=== PATIENT | female | born 1955 | race Hispanic/Latino ===

== ENCOUNTER 2023-01-02 06:47 | Inpatient (IN) | payer OTHER, MEDICAID, SELFPAY ==
[2022-12-16 12:47] VITALS: BMI 36.4
[2023-01-02] VITALS (16 sets, daily range): BP systolic 118–140; BP diastolic 63–91; PULSE 63–87; RESP 10–20; TEMP 36.2–36.9; O2SAT 91–100; BMI 36.4; BMI 37.2
[2023-01-02] MEDS: LACTATED RINGERS 1,000 ML 42 ML IV (07:20)
[2023-01-02] MEDS: ACETAMINOPHEN 325 MG TABLET 975 MG PO (07:27)
[2023-01-02] MEDS: GABAPENTIN 600 MG TABLET PO (07:27)
--- NOTE | 2023-01-02 09:09 | PM.PREOP ---
Pre-operative Note COVID-19 Criteria for continued procedure: Expected advancement of disease process, Possibility delay results in more complex future surgery or treatment, Increased loss of function, Continuing or worsening of significant or severe pain, Deterioration of the patient's condition or overall health and Delay expected to result in less-positive ultimate med/surg outcome Interval Note History & Physical reviewed/Exam performed by Physician: Yes Changes to H&P: No
--- NOTE | 2023-01-02 09:53 | SUR.OPER ---
Prone on spine table, head in foam head support, padded chest and pelvic supports, gel pad at knees, lower legs supported by pillows; nipples, genitalia and toes free of pressure, arms secured on foam padded arm boards at <90 degrees abduction. Tape over blanket at thigh secured to table.
[2023-01-02] MEDS: CEFAZOLIN 2 GM/100 ML PREMIX 100 ML IV ×2 (10:08→19:00)
[2023-01-02] MEDS: BUPIVACAINE 0.25% (PF) 30 ML, EPINEPHrine 0.15 MG INJ (10:24)
[2023-01-02] MEDS: BUPIVACAINE LIPOSOME 266 MG/20 ML VIAL INJ (11:55)
--- NOTE | 2023-01-02 11:58 | PM.OP.1 ---
Operative Date/Time/Diagnoses Date of procedure: 01/02/23 Time of procedure: 10:15 Pre-op diagnosis: 1. L5-S1 spinal stenosis 2. Lumbar spondylosis with radiculopathy Post-op diagnosis: same Procedure & Clinicians Procedure: 1. L5-S1 Postero-lateral and posterior interbody fusion 2. L5-S1 interbody cage placement. 3. L5-S1 decompressive laminectomy with bilateral facetecomies 4. L5-S1 Posterior non-segmental instrumentation 5. [place] of bone marrow from iliac crest 6. Utilization of microsurgical technique and operating microscope Same procedure as scheduled: Yes Indications: Patient has been having chronic back pain and worsening lumbar radiculopathy. Patient failed multiple conservative management with worsening pain weakness and numbness in her lower extremity. Patient has been having difficulty performing activity of daily living. After discussing risks benefits of treatment options, patient elected proceed with surgery. Surgeon: Marychuy Worthy [place] Oven Operator: Isa Heck Click Yes if Unassisted: No Anesthesia Type: General Operative Notes Closure Type: primary Specimen(s): none sent Prosthetic devices, grafts, tissues, transplants, or devices: Globus revolve screws, Rise cage Estimated Blood Loss (mL): 5 Blood products transfused: none Procedure in detail: Patient was seen in the preoperative area. Risks and benefits of the surgery was discussed with the patient. Informed consent was obtained from the patient and placed in the chart. Surgical site was marked. Patient was taken to the operative room. General anesthesia was administered. Prophylactic antibiotic was given to the patient less than 30 min before the incision was made. Patient was placed into a prone position on the Marvin table. Patient's back was then prepped and draped in the sterile fashion. Time-out was performed at this time. Using AP and lateral C-arm imaging the interval between L5-S1 was identified and marked on patient's back. A 2 inch incision 2 in from midline was made on the right side first. The fascia was incised in line with skin incision. Globus MARS retractors was placed inside the incision and docked onto the L5 lamina. Using microsurgical technique and operating microscope, a L5 laminectomy and L5-S1 facetectomy was performed using a Kerrison rongeur. The laminectomy and facetectomy was performed in order to decompress patient's cauda equina as well as the nerve roots exiting at the L5-S1 level. The disc space at L4-5 was identified. And a total diskectomy was performed at L5-S1 level. The endplates were decorticated using a rasp and shaver. The total diskectomy and decortication was performed at L5-S1 level in order to to accomplish a L5-S1 fusion. The local bone from the laminectomy and facetectomy was saved for local bone grafting. After the total diskectomy and decortication was completed, Trifecta bone graft material was combined with local bone that was harvested earlier. At this time, a separate skin is incision was made over the iliac crest. A Jamshidi needle was inserted into the iliac crest through a separate skin incision. 5 cc of bone marrow aspiration was obtained through the separate skin incision using a Jamshidi needle from the iliac crest. The bone marrow aspiration was combined with local bone and the Trifecta bone grafting material. The bone grafting material was placed into the L5-S1 interbody space along with a expandable cage. The cage was expanded to its maximum height using the torque limiting screwdriver. At this time a mirror image incision was made on the left side. The fascia was incised in line with the skin incision. Globus MARS retractor was inserted and docked onto the L5-S1 posterolateral gutter. Using the power drill, posterior-lateral decortication was performed at L5-S1 level until bleeding cortical bone was identified. The remaining bone grafting material was placed into the L5-S1 posterior lateral gutter he order to accomplish posterolateral fusion at the L5-S1 level. Using the double C-arm technique, pedicle screws were placed into the L5 and S1 pedicles bilaterally. This was done by placing the Jamshidi needle into the pedicles, then placing the guidewires over the Jamshidi needle, and finally placing the cannulated screws over the guidewires bilaterally. After the pedicle screws were placed, 2 titanium rods was locked into the heads of the pedicle screws using locking caps and torque limiting screwdriver. After all the hardware was placed, and confirmed with AP and lateral C-arm imaging, the wound was then irrigated with sterile normal saline and packed with Ray-Jp gauze for 3 min to accomplish hemostasis. After the gauze was removed the deep fascia was closed with #1 Vicryl suture. The subcutaneous layer was closed with 2-0 Vicryl. The skin was closed with skin casey. Patient tolerated the procedure well. There were no complications. The Operation could not have been safely performed without compromising the technical result or length of the procedure, without the assistance of a skilled surgical product sales consultant. The surgical product sales consultant was medically necessary for proper positioning, retraction and manipulation of instruments, proper exposure, surgical preparation, and manipulation of tissue. Complications: none Post-operative Condition: stable Disposition: PACU Plan for aftercare: Admit to inpatient hospital
--- NOTE | 2023-01-02 12:00 | DI.RAD.S_ITS ---
PROCEDURE: XR LUMBAR SPINE 2-3V INDICATIONS: L5-S1 TLIF TECHNIQUE: 2 intraoperative fluoroscopic views of the lumbar spine were acquired. COMPARISON: None. FINDINGS: L5-S1 posterior spinal fixation and discectomy hardware in place. The hardware appears intact. IMPRESSION: Intraoperative guidance was provided. Dictated by: Kolton Johnson M.D. on 01/02/2023 at 13:46 Approved by: Kolton Johnson M.D. on 01/02/2023 at 13:47
[2023-01-02] MEDS: HYDROMORPHONE 1 MG INJ IV ×4 (12:12→12:34)
[2023-01-02] MEDS: OXYCODONE IR 5 MG TABLET PO (12:39)
[2023-01-02] MEDS: hydrOXYzine pamoate 25 MG CAPSULE 50 MG PO (12:51)
--- NOTE | 2023-01-02 12:58 | SUR.PHASEI ---
patient still complaining of pain 8/10 when asked, but is able to sleep with current pain level and is too drowsy and has too much respiratory depression to safely administer more narcotics at this time.
[2023-01-02] MEDS: LACTATED RINGERS 1,000 ML 125 ML IV ×2 (14:27→22:46)
--- NOTE | 2023-01-02 15:53 | PT-IP ANOTE ---
Addendum entered and electronically signed by Saulo Perkins PT 01/02/23 15:58: Post-op education packet was provided to the pt. Original Note: After introduction by PT, the pt states she is not ready to participate in PT evaluation due to fatigue. However, the pt is agreeable to answering questions regarding subjective information. The pt and the pt's were educated on post-op precautions, including education on log roll technique to get up from bed. The pt was left with at bedside, all needs met and call light within reach.
[2023-01-02] MEDS: OXYCODONE IR 10 MG TABLET PO ×3 (16:39→23:46)
[2023-01-02] MEDS: ONDANSETRON 4 MG ODT SL (16:39)
[2023-01-02] MEDS: HYDROMORPHONE 0.5 MG INJ IV ×2 (16:40→20:30)
--- NOTE | 2023-01-02 19:21 | PC.NURSE ---
Day shift: Patient up from OR @ 1600. Patient is AxOx4, denies pain, SOB. VSS, O2 sats at 97% on 1 L O2. Incision on back covered with gauze and medipore tape, dressing is clean, dry, and intact. 1 PA assist with gait belt and FWW to [facility], had one episode of nausea after getting OOB, medicated with Zofran as ordered w/ good effect. Bed alarm on, call light within reach.
[2023-01-02] MEDS: hydrOXYzine pamoate 25 MG CAPSULE PO (19:44)
[2023-01-02] MEDS: DOCUSATE 100 MG CAPSULE PO (21:12)
[2023-01-02] MEDS: SENNOSIDES 8.6 MG TABLET 17.2 MG PO (21:13)
[2023-01-02] MEDS: GABAPENTIN 300 MG CAPSULE PO (21:13)
[2023-01-02] MEDS: ATORVASTATIN 20 MG TABLET 10 MG PO (21:13)
[2023-01-02] MEDS: BACLOFEN 10 MG TABLET 20 MG PO (21:14)
[2023-01-02] MEDS: ACETAMINOPHEN 325 MG TABLET 650 MG PO (23:45)
[2023-01-03] MEDS: CEFAZOLIN 2 GM/100 ML PREMIX 100 ML IV (02:39)
[2023-01-03 03:00] VITALS: BP 138/64; PULSE 67; RESP 17; TEMP 36.7; O2SAT 99
[2023-01-03] MEDS: OXYCODONE IR 10 MG TABLET PO ×5 (03:04→22:28)
[2023-01-03] MEDS: hydrOXYzine pamoate 25 MG CAPSULE PO ×4 (03:05→22:28)
--- NOTE | 2023-01-03 06:28 | P.PN_ITS ---
Subjective Subjective Date Patient Seen: 01/03/23 Time Patient Seen: 06:29 Interval history: Pt sleeping, awakens easily to voice. Was OOB last night to use the bathroom, c/o severe pain. Has not yet worked with PT. No issues w/ voiding or eating. Feeling unsteady and would like to discharge home tomorrow. Exam Vital Signs (past 8 hours): - 01/02/23 23:00 01/03/23 03:00 Temperature 98 F 98.1 F Pulse Rate 70 67 Respiratory Rate 17 17 Blood Pressure 126/63 138/64 Pulse Oximetry 98 99 Oxygen Flow Rate 0 0 Oxygen Delivery Method Room Air Oxygen Flow Rate 0 Narrative Exam Narrative: 5/5 strength in hip flexors, quadriceps, hamstrings, DF, PF, EHL bilaterally. Sensation to light touch intact in BLE. Calves soft, compressible, nontender. Dressing placed intraoperatively CDI. [facility] Medical History (Updated 12/16/22 @ 13:08 by Johann Leslie RN) Allergic symptoms High cholesterol TIA (transient ischemic attack) Surgical History (Updated 01/03/23 @ 06:30 by Isa Heck PA-C) History of partial knee replacement Hx of surgical procedure Social History household members: spouse Smoking Status: Former smoker alcohol intake: current Assessment & Plan Post-op Assessment and plan (1) S/P lumbar fusion: Assessment and Plan narrative: Pt to work w/ PT today. Likely d/c home tomorrow if she progresses w/ PT and pain is controlled w/ oral meds. Postoperative Procedures: Procedures Operation Date: 01/02/23 09:15 Actual Procedure Side Surgeon p L5-S1 TLIF Marychuy Worthy MD Postoperative day: 1 Quality VTE Deep Vein Thrombosis/Pulmonary Embolism Present on Admission: No
[2023-01-03 07:00] VITALS: BP 105/59; PULSE 63; RESP 16; TEMP 37.1; O2SAT 97
[2023-01-03] MEDS: ACETAMINOPHEN 325 MG TABLET 650 MG PO ×3 (08:29→22:28)
[2023-01-03] MEDS: DOCUSATE 100 MG CAPSULE PO ×2 (08:30→20:29)
[2023-01-03] MEDS: LOSARTAN 25 MG TABLET PO (08:30)
[2023-01-03] MEDS: FLUoxetine 20 MG CAPSULE 40 MG PO (08:30)
[2023-01-03] MEDS: HYDROMORPHONE 0.5 MG INJ IV ×4 (10:28→23:20)
--- NOTE | 2023-01-03 11:47 | PT-IP ANOTE ---
Pt is refusing mobility at this time due to pain. Will attempt eval again later today.
--- NOTE | 2023-01-03 11:47 | OT.IPNOTE ---
Pt just getting pain meds and requesting to be seen for OT eval after lunch. To check on the pt after lunch.
[2023-01-03 12:00] VITALS: BP 101/58; PULSE 63; RESP 16; O2SAT 99
--- NOTE | 2023-01-03 14:42 | PT.IIE ---
Current Diagnoses Spondylolisthesis, lumbosacral region (01/02/23) Spinal stenosis, lumbar region with neurogenic claudication (01/02/23) Arthrodesis status (01/02/23) Surgery Performed Operation Date: 01/02/23 09:15 Actual Procedures p L5-S1 TLIF - Marychuy Worthy MD Surgical History (Last Updated 12/16/22 @ 13:20 by Johann Leslie, RN) History of partial knee replacement Hx of surgical procedure Medical History (Last Updated 12/16/22 @ 13:08 by Johann Leslie, JAI) Allergic symptoms High cholesterol TIA (transient ischemic attack) Physical Therapy Inpatient Evaluation/Re-Eval M1 PT/OT-IP Prior Functional Status Start: 01/02/23 15:48 Freq: NEEDED Status: Active Protocol: Document 01/03/23 14:42 DLM (Rec: 01/03/23 16:28 DLM [id number]) Medical Review Prior Functional Status Medical History Reviewed Yes Diet/Fluid Consistency Regular Communication Pt able to express needs without difficulty. Mobility and Gait Gait with cane due to right knee surgery 4 months ago, able to ambulate community distances but uses 4WW to manage her pain as needed Activities of Daily Living and IADL's Independent with basic ADL's. Spouse helps with social media manager as needed with patient' s recent knee surgeries. Her spouse helps with ADL's when she is in pain. Prior Functional Level (Other details) she likes to get out in her garden, grows aly Social History Household Members spouse Living Arrangements House Number of Floors (Floors) One Floor Number of Stairs To Enter/Railing? ramp Home Environment High Toilet,Walk in Shower, Ramp Home Equipment Front Wheel Walker,Four Wheel Walker,Straight Cane,Manual Wheelchair,Raised Toilet Seat Without Armrests,Grab Bars In Shower Additional Social History Comment Pt lives with who is available to assist her as needed. He is retired. She also has an electric recliner that lies fully back. M2 PT-IP Current Condition Start: 01/02/23 15:48 Freq: NEEDED Status: Active Protocol: Document 01/03/23 14:42 DLM (Rec: 01/03/23 16:28 DLM [id number]) Physical Therapy Current Condition Current Condition Evaluation Date 01/03/23 Treatment Diagnosis L5-S1 TLIF, impaired mobility/ gait Onset Date 01/02/23 M3 PT-IP Subjective Start: 01/02/23 15:48 Freq: NEEDED Status: Active Protocol: Document 01/03/23 14:42 DLM (Rec: 01/03/23 16:28 DL [id number]) Subjective Physical Therapy Visit Type Type Initial Evaluation Visit Start Time 13:50 Visit Stop Time 14:42 Total Visit Minutes 52 Notes visit done in conjunction with OT Number of DULSER Visits 0 Physical Therapy Visit Comments Patient Comments She was able to get up to the toilet with nursing but had a lot of pain when she got back to bed. Her does not think she is ready to go home today due to her pain level. Patient Goals Discharge home with Spouse to assist Therapy Pain Assessment Pain When Pain Assessed During Mobility Pain Present Pain Present Pain Reported Location Lower Back Intensity 6 Scale Used Numeric (0 - 10) Description Aching,Burning,Tender,With Movement Pain Behaviors Facial Grimacing,Guarding Pain Management Techniques Apply Cold,Re-positioning, Timing of Activity with Medications M4 PT-IP Mobility and Gait Start: 01/02/23 15:48 Freq: NEEDED Status: Active Protocol: Document 01/03/23 14:42 DLM (Rec: 01/03/23 16:28 DL [id number]) PT-Bed Mobility Assessment Rolling Type of Rolling Log Rolling,Roll to Left Level of Assist Standby Assistance Supine to Sit Supine to Sit Minimal Assistance Scooting Scooting to Edge of Bed Independent PT-Transfer Assessment Sit to and From Stand Sit to and from Stand Contact Guard Assistance,Use of Upper Extremities Equipment Transfer Assistive Device Gait Belt,Front Wheeled Walker Transfers Transfer Destination Chair,Toilet Transfer Technique Stand Step Pivot Transfer Ability Level of Assist Standby Assistance,Contact Guard Assistance,Use of Upper Extremities Comments Mobility Comments Educated pt in using spine precautions during mobility. Gait Assessment Gait Gait Assistance Required: Contact Guard Assist Distance (Feet) 150 Able to Maintain Weight Bearing Status Yes During Gait Assistive Devices Assistive Device Gait Belt,Front Wheeled Walker Gait Deviations General Gait Pattern Decreased Stride Length,Narrow Based Gait Factors Limiting Gait Function Factors Limiting Gait Function Decreased Activity Tolerance, Limited Range of Motion,Pain, Poor Balance Comments Gait Comments Pt needs reminders to turn slowly with the FWW to prevent twisting. She has a mild posterior lean intermittently in standing. She reports her head feels funny but no light- headedness nor did it get worse with activity. Pt up to toilet and ambulated in the goldsmith. Stair Climbing Assessment Comments Stair Climbing Comments ramp at home PT-Balance Assessment Sitting Balance and Reactions Static Sitting Balance Ability Good Dynamic Sitting Balance Ability Good Standing Balance and Reactions Static Standing Balance Ability Good Dynamic Standing Balance Ability Fair Device Used FWW M5 PT-IP Objective Assessments Start: 01/02/23 15:48 Freq: NEEDED Status: Active Protocol: Document 01/03/23 14:42 DLM (Rec: 01/03/23 16:28 [facility] [id number]) Orientation Orientation/Cognition Level of Alertness Alert Orientation Name,Age,Birthday,Month,Date, Year,Day of Week,Place, Situation Language Function Ability [place] as Second Language Safety Awareness Understands Safety Issues Memory Description No Deficits Noted Gross Range of Motion Upper Extremity ROM Assessment Within Functional Limits Lower Extremity ROM Assessment Within Functional Limits Strength Upper Extremity Strength Assessment Within Functional Limits Lower Extremity Strength Assessment Within Functional Limits Comments Strength Comments limited trunk ROM and strength post-op with pain and precautions Coordination Assessment Gross Coordination Gross Coordination WNL Sensation Assessment Sensation Gross Sensation WNL Muscle Tone Muscle Tone WNL Yes M6 PT-IP Treatment Start: 01/02/23 15:48 Freq: NEEDED Status: Active Protocol: Document 01/03/23 14:42 DLM (Rec: 01/03/23 16:28 [facility] [id number]) Physical Therapy Treatment Exercises Exercises Ankle Pumps Education Education Provided Precautions,Post-Op Packet, Safety Other Treatments Other Treatment Performed Her Spouse is present this visit and participated in education and training. M7 PT-IP Assessment and Plan Start: 01/02/23 15:48 Freq: NEEDED Status: Active Protocol: Document 01/03/23 14:42 DLM (Rec: 01/03/23 16:28 [facility] [id number]) PT Summary Assessment and Plan Potential Rehabilitation Potential Good Status of Condition at Evaluation Evolving Summary Impairments Pain,ROM,Strength,Balance,Bed Mobility,Transfers,Gait, Activity Tolerance Progress Towards Goals Slow Progress due to Pain Assessment Summary Celia is alert and resting in bed. She reports her pain is better this afternoon after getting medication. She tolerted getting up to the toilet, ambulating in the goldsmith and sitting up in the recliner this visit. She has more back pain with mobility than she does at rest. No light-headedness nor nausea with activity. Pt left sitting up in recliner with Spouse visiting at the end of this visit. Her Spouse is very supportive and will be able to assist her as needed at discharge. Anticipate she will be able to discharge home tomorrow. Pt and her Spouse do not feel she is ready today due to pain issues. Goals Bed Mobility Goal Independent Transfer Goal Independent,Front Wheeled Walker Gait Goal Independent,Front Wheel Walker Gait Distance 150 feet Days to Meet Goals 2 Frequency of Treatment Frequency Of Treatment Twice a Day Treatment Plan Physical Therapy Treatment Plan Bed Mobility Training,Transfer Training,Gait Training, Therapeutic Exercise,Balance Retraining,Post Op Education, Discharge Planning,Hot or Cold Pack,Neuromuscular Re-ed Precautions Lumbar Precautions Log Roll,No Twisting,Limit Bending,Lifting Restriction of 10 lbs,Gait Belt above Incisional Area Recommendations To Nursing Amount of Assist Needed 1 Person Assist Discharge Recommendations PT Discharge Recommendations Home with Assistance Other Discharge Recommendations home with Spouse to assist Transportation Needs at Discharge Private Vehicle
--- NOTE | 2023-01-03 14:43 | OT.IP.EVAL ---
Current Diagnoses Spondylolisthesis, lumbosacral region (01/02/23) Spinal stenosis, lumbar region with neurogenic claudication (01/02/23) Arthrodesis status (01/02/23) Surgery Performed Operation Date: 01/02/23 09:15 Actual Procedures p L5-S1 TLIF - Marychuy Worthy MD Past Medical History (Last Updated 12/16/22 @ 13:08 by Johann Leslie, RN) Allergic symptoms High cholesterol TIA (transient ischemic attack) Surgical History (Last Updated 12/16/22 @ 13:20 by Johann Leslie, RN) History of partial knee replacement Hx of surgical procedure Occupational Therapy Inpatient Evaluation/Re-Eval M1 PT/OT-IP Prior Functional Status Start: 01/02/23 15:48 Freq: NEEDED Status: Active Protocol: Document 01/03/23 14:42 DLM (Rec: 01/03/23 16:28 DLM [id number]) Medical Review Prior Functional Status Medical History Reviewed Yes Diet/Fluid Consistency Regular Communication Pt able to express needs without difficulty. Mobility and Gait Gait with cane due to right knee surgery 4 months ago, able to ambulate community distances but uses 4WW to manage her pain as needed Activities of Daily Living and IADL's Independent with basic ADL's. Spouse helps with damper worker as needed with patient's recent knee surgeries. Her spouse helps with ADL's when she is in pain. Prior Functional Level (Other details) she likes to get out in her garden, grows aly Social History Household Members spouse Living Arrangements House Number of Floors (Floors) One Floor Number of Stairs To Enter/Railing? ramp Home Environment High Toilet,Walk in Shower, Ramp Home Equipment Front Wheel Walker,Four Wheel Walker,Straight Cane,Manual Wheelchair,Raised Toilet Seat Without Armrests,Grab Bars In Shower Additional Social History Comment Pt lives with who is available to assist her as needed. He is retired. She also has an electric recliner that lies fully back. M2 OT-IP Current Condition Start: 01/03/23 16:31 Freq: Status: Active Protocol: Document 01/03/23 13:50 CCC (Rec: 01/03/23 16:50 CCC [id number]) Occupational Therapy Current Condition Current Condition Evaluation Date 01/03/23 Treatment Diagnosis S/P L5-S1 Diagnosis Onset Date 01/02/23 Post Operative Precautions Lumbar Precautions Log Roll,No Twisting,Limit Bending,Lifting Restriction of 10 lbs,Gait Belt above Incisional Area M3 OT- IP Subjective and Pain Start: 01/03/23 16:31 Freq: Status: Active Protocol: Document 01/03/23 13:50 [facility] (Rec: 01/03/23 16:50 [facility] [id number]) OT- Subjective Occupational Therapy Visit Type Type Initial Evaluation Visit Start Time 13:50 Visit Stop Time 14:43 Total Visit Minutes 53 Occupational Therapy Visit Comments Patient Comments Pt agreed to get up after getting pain medications and after lunch. Patient/Caregiver Goals To go home. OT Pain Assessment Pain When Pain Assessed At Rest Pain Present Pain Present Pain Reported Location Lower Back Intensity 7 Scale Used Numeric (0 - 10) M4 OT- IP ADL's Start: 01/03/23 16:31 Freq: Status: Active Protocol: Document 01/03/23 13:50 [facility] (Rec: 01/03/23 16:50 [facility] [id number]) OT BUY-Lkdz-Ejklhsw General Evaluation Self-Feeding Ability Independent OT ADL-Grooming General Evaluation Areas Needing Assistance Retrieving/Set-up of Grooming Items Comments OT Grooming Comments Up with FWW OT ADL-Oral Care Comments Oral Care Comments Not performed. OT ADL-Dressing General Eval Lower Body Dressing Ability Maximum Assistance Comments OT Dressing Comments Assist with socks. OT ADL-Toileting General Evaluation Toileting Ability Standby Assistance Comments OT Toileting Comments Pt able to wipe while standing . OT ADL-Bathing Comments OT Bathing Comments Not performed. M5 OT- IP IADL's Start: 01/03/23 16:31 Freq: Status: Active Protocol: Document 01/03/23 13:50 [facility] (Rec: 01/03/23 16:50 [facility] [id number]) OT-Instrumental Activities of Daily Living Deficits IADL Deficits Identified Deficits Home Safety Awareness Awareness of Need for Assistance at Home Good Awareness Ability to Problem Solve Emergency Able to Problem Solve Situations Meal Preparation Meal Preparation Caregiver Provides Assist Wellness Trainer Wellness Trainer Caregiver Provides Assist M6 OT- IP Functional Cognition Start: 01/03/23 16:31 Freq: Status: Active Protocol: Document 01/03/23 13:50 [facility] (Rec: 01/03/23 16:50 [facility] [id number]) Cognitive Factors Limiting Selfcare Function Cognitive Ability Level of Alertness Alert Patient Orientation Name,Place,Situation Attention Span Ability Capable of Focused Attention, Capable of Sustained Attention Ability to Follow Commands Able to Follow One Step Commands Cognitive Comments Cognitive Assessment Comments Maori is not her primary language but able to follow directions for ADl and mobility needs. OT- Vision and Hearing OT- Hearing Assessment OT- Hearing Assessment WFL OT- Vision Assessment Visual Acuity Glasses All The Time M7 OT- IP Mobility and Balance Start: 01/03/23 16:31 Freq: Status: Active Protocol: Document 01/03/23 13:50 [facility] (Rec: 01/03/23 16:50 [facility] [id number]) OT- Bed Mobility Assessment Supine to Sit Supine to Sit Assist Minimal Assistance OT-Transfer Assessment Sit to and From Stand Sit to and from Stand Contact Guard Assistance Transfers Transfer Ability Contact Guard Assistance Technique Transfer Destination Bed,Chair,Toilet Transfer Technique Stand Step Pivot Devices Transfer Assistive Devices Gait Belt,Front Wheeled Walker Comments Mobility Comments Pt ADELINA to get out of bed with log rolling, CGA with FWW to get into the bathroom, out in the hallway and to the recliner. Able to educate pt on car transfer with incorporation of her back precautions. OT- Balance Assessment Sitting Balance and Reactions Static Sitting Balance Ability Normal Dynamic Sitting Balance Ability Good Standing Balance and Reactions Static Standing Balance Ability Good Dynamic Standing Balance Ability Good M9 OT- IP Assessment and Plan Start: 01/03/23 16:31 Freq: Status: Active Protocol: Document 01/03/23 13:50 [facility] (Rec: 01/03/23 16:50 [facility] [id number]) OT Summary Assessment and Plan Potential Rehabilitation Potential Excellent Analytic Complexity at Evaluation Low Summary OT Impairments Pain,Functional Mobility, Dressing,Bathing,Toilet Transfers,Shower Transfers Progress Towards Goals Progressing Toward Goals Assessment Summary Pt low complexity and main barriers is pain , otherwise doing well. Pt's states will continue to assist pt for her ADL needs and IADl needs as he has done so before due to having pain with her back. Pt to go home with assist when medically stable. Goals Grooming Goal Independent Dressing Goal Minimal Assistance Toileting Goal Independent Toilet Transfer Goal Independent,Standby Assistance Shower Transfer Goal Standby Assistance Patient/Caregiver Education Goal Demonstrate Post-Op Precautions,Caregiver Independent Assisting Patient Days to Meet Goals 3 Frequency of Treatment Frequency Of Treatment Once a Day Treatment Plan OT Treatment Plan ADL Training,Functional Mobility,Patient/Family Education,Discharge Planning Discharge Recommendations OT Discharge Recommendations Home with Assistance Home Equipment Needs shower chair and hand held shower spray
[2023-01-03 16:00] VITALS: BP 105/51; PULSE 63; RESP 16; O2SAT 97
[2023-01-03 19:35] VITALS: BP 103/64; PULSE 60; RESP 16; TEMP 36.7; O2SAT 98
[2023-01-03] MEDS: SENNOSIDES 8.6 MG TABLET 17.2 MG PO (20:28)
[2023-01-03] MEDS: GABAPENTIN 300 MG CAPSULE PO (20:29)
[2023-01-03] MEDS: BACLOFEN 10 MG TABLET 20 MG PO (20:29)
[2023-01-03] MEDS: ATORVASTATIN 20 MG TABLET 10 MG PO (20:29)
[2023-01-04] MEDS: HYDROMORPHONE 0.5 MG INJ IV ×2 (01:36→06:08)
[2023-01-04 04:05] VITALS: BP 102/55; PULSE 68; RESP 16; TEMP 37.4; O2SAT 94
[2023-01-04 07:43] VITALS: BP 131/62; PULSE 79; RESP 20; TEMP 37.2; O2SAT 97
[2023-01-04] MEDS: hydrOXYzine pamoate 25 MG CAPSULE PO ×3 (07:52→19:18)
[2023-01-04] MEDS: ACETAMINOPHEN 325 MG TABLET 650 MG PO ×2 (07:52→14:41)
[2023-01-04] MEDS: OXYCODONE IR 10 MG TABLET PO (07:52)
[2023-01-04] MEDS: DOCUSATE 100 MG CAPSULE PO ×2 (07:52→20:09)
[2023-01-04] MEDS: LOSARTAN 25 MG TABLET PO (07:52)
[2023-01-04] MEDS: FLUoxetine 20 MG CAPSULE 40 MG PO (07:52)
--- NOTE | 2023-01-04 08:42 | PT.IPTN ---
Current Diagnoses Spondylolisthesis, lumbosacral region (01/02/23) Spinal stenosis, lumbar region with neurogenic claudication (01/02/23) Arthrodesis status (01/02/23) Surgery Performed Operation Date: 01/02/23 09:15 Actual Procedures p L5-S1 TLIF - Marychuy Worthy MD Physical Therapy Treatment Note M2 PT-IP Current Condition Start: 01/02/23 15:48 Freq: NEEDED Status: Active Protocol: Document 01/03/23 14:42 DLM (Rec: 01/03/23 16:28 DLM [id number]) Physical Therapy Current Condition Current Condition Evaluation Date 01/03/23 Treatment Diagnosis L5-S1 TLIF, impaired mobility/ gait Onset Date 01/02/23 M3 PT-IP Subjective Start: 01/02/23 15:48 Freq: NEEDED Status: Active Protocol: Document 01/04/23 09:25 TS (Rec: 01/04/23 09:49 TS [id number]) Subjective Physical Therapy Visit Type Type Treatment Note Visit Start Time 08:42 Visit Stop Time 09:20 Total Visit Minutes 38 Notes Spouse present Number of MEN'S GARMENT FITTER Visits 1 Physical Therapy Visit Comments Patient Comments Pt found resting in bed on L side, spouse present, PA discussing care with pt and the importance of mobility. pt reports being drowzy, pt agreeable to PT. Patient Goals Discharge home with Spouse to assist Therapy Pain Assessment Pain When Pain Assessed At Rest Pain Present Pain Present Pain Reported M4 PT-IP Mobility and Gait Start: 01/02/23 15:48 Freq: NEEDED Status: Active Protocol: Document 01/04/23 09:25 TS (Rec: 01/04/23 09:49 TS [id number]) PT-Bed Mobility Assessment Supine to Sit Supine to Sit Minimal Assistance Scooting Scooting to Edge of Bed Independent PT-Transfer Assessment Sit to and From Stand Sit to and from Stand Contact Guard Assistance,Use of Upper Extremities Equipment Transfer Assistive Device Gait Belt,Front Wheeled Walker Comments Mobility Comments Pt recalled 0/3 precautions prior to mobility. Supine to sit Enoc for uprighting trunk, provided cues for handplacement and LEs over EOB . Pt sat EOB with no UE support, pt recalled 2/3 spinal precautions(no lifting) . Sit to stand CGA with use of FWW, pt is slow to stand and garding for pain, has no retroleaning. She ambulated ~ 80' CGA from spouse, when ambulating bakc to room pt became dizzy, felt nauseous and began sweating. Recliner brought out in goldsmith for pt to rest, pt was brought back to room in recliner. BP taken in sitting 102/58. Pt was left in chair asleep, spouse in room, RN notified of dizziness, nausea and BP. Gait Assessment Gait Gait Assistance Required: Contact Guard Assist Distance (Feet) 80 Able to Maintain Weight Bearing Status Yes During Gait Assistive Devices Assistive Device Gait Belt,Front Wheeled Walker Gait Deviations General Gait Pattern Decreased Stride Length,Narrow Based Gait,Step-to Gait Factors Limiting Gait Function Factors Limiting Gait Function Decreased Activity Tolerance, Decreased Strength,Limited Range of Motion,Pain,Poor Balance Comments Gait Comments Pt has a slow step to gait with NBOS at times. See mobility comments. Stair Climbing Assessment Comments Stair Climbing Comments ramp at home PT-Balance Assessment Sitting Balance and Reactions Static Sitting Balance Ability Good Dynamic Sitting Balance Ability Good Standing Balance and Reactions Static Standing Balance Ability Good Dynamic Standing Balance Ability Fair Device Used FWW M5 PT-IP Objective Assessments Start: 01/02/23 15:48 Freq: NEEDED Status: Active Protocol: Document 01/03/23 14:42 DLM (Rec: 01/03/23 16:28 DLM [id number]) Orientation Orientation/Cognition Level of Alertness Alert Orientation Name,Age,Birthday,Month,Date, Year,Day of Week,Place, Situation Language Function Ability Icelandic as Second Language Safety Awareness Understands Safety Issues Memory Description No Deficits Noted Gross Range of Motion Upper Extremity ROM Assessment Within Functional Limits Lower Extremity ROM Assessment Within Functional Limits Strength Upper Extremity Strength Assessment Within Functional Limits Lower Extremity Strength Assessment Within Functional Limits Comments Strength Comments limited trunk ROM and strength post-op with pain and precautions Coordination Assessment Gross Coordination Gross Coordination WNL Sensation Assessment Sensation Gross Sensation WNL Muscle Tone Muscle Tone WNL Yes M6 PT-IP Treatment Start: 01/02/23 15:48 Freq: NEEDED Status: Active Protocol: Document 01/04/23 09:25 TS (Rec: 01/04/23 09:49 TS [id number]) Physical Therapy Treatment Education Education Provided Precautions,Post-Op Packet, Safety Other Treatments Other Treatment Performed Her Spouse is present this visit and participated in education and training. M7 PT-IP Assessment and Plan Start: 01/02/23 15:48 Freq: NEEDED Status: Active Protocol: Document 01/04/23 09:25 TS (Rec: 01/04/23 09:49 TS [id number]) PT Summary Assessment and Plan Potential Rehabilitation Potential Good Summary Progress Towards Goals Slow Progress due to Pain Assessment Summary Pt continues to have difficult recalling spinal precautions, initially recalled 0/3, later in session recalled 2/3(no lifting). She is Enoc for suine to sit and scoots to EOB Ind. Sitting EOB pt reported not having much pain since she was recently medicated. She performed sit to stand x1 CGA w/FWW, pt had good posture in standing with no retroleaning. She ambulated ~80' CGA w/FWW, she became dizzy, nauseous, drowsy and began sweating, recliner was provided for her to rest, RN was notified. Pt's spouse has been present for all therapy sessions and feels comfortable taking care of pt at home but does worry about managing her pain at home. Due to pt's pain and dizziness with gait, PT would recommend home with 24/7 assist at this time. Goals Bed Mobility Goal Independent Transfer Goal Independent,Front Wheeled Walker Gait Goal Independent,Front Wheel Walker Gait Distance 150 feet Days to Meet Goals 2 Frequency of Treatment Frequency Of Treatment Twice a Day Treatment Plan Physical Therapy Treatment Plan Bed Mobility Training,Transfer Training,Gait Training, Therapeutic Exercise,Balance Retraining,Post Op Education, Discharge Planning,Hot or Cold Pack,Neuromuscular Re-ed Precautions Lumbar Precautions Log Roll,No Twisting,Limit Bending,Lifting Restriction of 10 lbs,Gait Belt above Incisional Area Recommendations To Nursing Amount of Assist Needed 1 Person Assist Discharge Recommendations PT Discharge Recommendations Home with 24/7 Assist Available Other Discharge Recommendations home with Spouse to assist Transportation Needs at Discharge Private Vehicle
--- NOTE | 2023-01-04 08:49 | PM.PNPO.1 ---
Subjective Subjective Date Patient Seen: 01/04/23 Time Patient Seen: 08:49 Interval history: Patient states she was having severe pain all night. Distal received some IV Dilaudid which has helped decrease her pain. Patient denies fever chills. No nausea or vomiting. Exam Vital Signs (past 8 hours): - 01/04/23 04:05 01/04/23 07:43 Temperature 99.3 F 98.9 F Pulse Rate 68 79 Respiratory Rate 16 20 Blood Pressure 102/55 L 131/62 Pulse Oximetry 94 97 Oxygen Flow Rate 0 0 Oxygen Delivery Method Room Air Oxygen Flow Rate 0 Narrative Exam Narrative: 67-year-old female resting comfortably in bed in no apparent distress. Patient is lying on her side. Dressing is clean, dry and intact. Motor functions intact bilateral lower extremities. Sensation grossly intact to light touch bilateral lower extremities. Const General: comfortable Nutritional Appearance: obese (BMI 37.2) Orientation: alert Resp Effort & Inspection: normal respiratory effort and able to speak in complete sentences PFSH Medical History Allergic symptoms High cholesterol TIA (transient ischemic attack) Surgical History History of partial knee replacement Hx of surgical procedure Social History household members: spouse Smoking Status: Former smoker alcohol intake: current Assessment & Plan Post-op Postoperative Procedures: Procedures Operation Date: 01/02/23 09:15 Actual Procedure Side Surgeon p L5-S1 TLIF Marychuy Worthy MD Postoperative day: 2 Postoperative status: marginal pain control Postoperative plan: routine post-op care Postoperative plan narrative: Continue work on better pain control. We will discontinue IV Dilaudid and add Dilaudid p.o. for breakthrough pain Mobilize with physical therapy Discharge home versus [facility] facility tomorrow Quality VTE Deep Vein Thrombosis/Pulmonary Embolism Present on Admission: No
[2023-01-04] MEDS: HYDROMORPHONE 2 MG TABLET PO ×4 (09:37→22:26)
--- NOTE | 2023-01-04 11:56 | CM.DANOTE ---
Initial DCP Assessment Note Pt is a 67 yo female, resident of [place] , now POD#2 p L5-S1 TLIF by Dr Worthy PCP: Sulaiman Chandler Payer: Ethan GEORGE/SOFIE Reviewed chart, pt discussed in multidisciplinary rounds this morning. Therapy has cleared pt for return home w/family to assist and pt has planned for home, DC order from Ortho expected tomorrow as long as patient's pain is better controlled. Patient has been complaining of severe pain over the last 24 hrs. No barriers identified at this time to patient's safe discharge home w/family to assist; close outpatient f/u recommended. CM team will plan to follow closely in case any DC needs or concerns arise MEENU Pham Discharge Planning/Care Management Discharge Assessment Start: 01/04/23 11:51 Freq: Status: Active Protocol: Document 01/04/23 11:51 GREGORY (Rec: 01/04/23 11:56 [id number]) Discharge Planning Assessment Assigned Lie Detector Operator MEENU Lugo DPOA/Assigned Designee Name Julien So, spouse Contact Information [phone] Advance Directives? No History Provided By Patient,Medical Record Prior Living Arrangements House Household Members spouse Type of transportation used prior to Drives own vehicle admit Independent with ADL's Yes: 4WW r/t pain and poor activity tolerance Is patient alert and oriented? Yes Barriers to Discharge No Comment PT=Home w/spouse Discharge Plan Home Transportation Arrangement Family Referrals Initiated None needed
[2023-01-04] MEDS: polyethylene glycoL 3350 17 GM POWD.PACK PO (14:40)
[2023-01-04] MEDS: BENZOCAINE/MENTHOL 1 LOZ PKT 1 EACH PO (14:41)
--- NOTE | 2023-01-04 14:50 | PT.IPTN ---
Current Diagnoses Spondylolisthesis, lumbosacral region (01/02/23) Spinal stenosis, lumbar region with neurogenic claudication (01/02/23) Arthrodesis status (01/02/23) Surgery Performed Operation Date: 01/02/23 09:15 Actual Procedures p L5-S1 TLIF - Marychuy Worthy MD Physical Therapy Treatment Note M2 PT-IP Current Condition Start: 01/02/23 15:48 Freq: NEEDED Status: Active Protocol: Document 01/03/23 14:42 DLM (Rec: 01/03/23 16:28 DLM [id number]) Physical Therapy Current Condition Current Condition Evaluation Date 01/03/23 Treatment Diagnosis L5-S1 TLIF, impaired mobility/ gait Onset Date 01/02/23 M3 PT-IP Subjective Start: 01/02/23 15:48 Freq: NEEDED Status: Active Protocol: Document 01/04/23 15:11 TS (Rec: 01/04/23 15:23 TS [id number]) Subjective Physical Therapy Visit Type Type Treatment Note Visit Start Time 14:50 Visit Stop Time 15:10 Total Visit Minutes 20 Number of IRON PILER Visits 2 Physical Therapy Visit Comments Patient Comments Pt found standing up with spouse in room, reports needing to use toilet, pt agreeable to PT. Patient Goals Discharge home with Spouse to assist Therapy Pain Assessment Pain When Pain Assessed At Rest Pain Present Pain Present Pain Reported M4 PT-IP Mobility and Gait Start: 01/02/23 15:48 Freq: NEEDED Status: Active Protocol: Document 01/04/23 15:11 TS (Rec: 01/04/23 15:23 TS [id number]) PT-Transfer Assessment Sit to and From Stand Sit to and from Stand Standby Assistance,Contact Guard Assistance,Use of Upper Extremities Equipment Transfer Assistive Device Gait Belt,Front Wheeled Walker Comments Mobility Comments Pt recalled 3/3 spinal precautions prior to mobility this session. Sit to stand CGA from spouse with FWW, pt demonstrates good posture in standing, c/o increasing back pain. She ambulated SBA to toilet with slow step to gait, denied any dizziness or lighteheadedness. Pt stood from toilet SBA with FWW and use of grab bar. She ambulated back to bed ~12' SBA, stand to sit on EOB SBA with cues for handrail assist. Sit to supine she required max cues for sequencing and logroll technique. Pt was left in bed with call light nearby, spouse in room, all needs met. Gait Assessment Gait Gait Assistance Required: Contact Guard Assist Distance (Feet) 25 Able to Maintain Weight Bearing Status Yes During Gait Assistive Devices Assistive Device Gait Belt,Front Wheeled Walker Gait Deviations General Gait Pattern Decreased Stride Length,Narrow Based Gait,Step-to Gait Factors Limiting Gait Function Factors Limiting Gait Function Decreased Activity Tolerance, Decreased Strength,Limited Range of Motion,Pain,Poor Balance Comments Gait Comments Pt has a slow step to gait with NBOS at times. See mobility comments. Stair Climbing Assessment Comments Stair Climbing Comments ramp at home PT-Balance Assessment Sitting Balance and Reactions Static Sitting Balance Ability Good Dynamic Sitting Balance Ability Good Standing Balance and Reactions Static Standing Balance Ability Good Dynamic Standing Balance Ability Fair Device Used FWW M5 PT-IP Objective Assessments Start: 01/02/23 15:48 Freq: NEEDED Status: Active Protocol: Document 01/03/23 14:42 DL (Rec: 01/03/23 16:28 DL [id number]) Orientation Orientation/Cognition Level of Alertness Alert Orientation Name,Age,Birthday,Month,Date, Year,Day of Week,Place, Situation Language Function Ability Dominican as Second Language Safety Awareness Understands Safety Issues Memory Description No Deficits Noted Gross Range of Motion Upper Extremity ROM Assessment Within Functional Limits Lower Extremity ROM Assessment Within Functional Limits Strength Upper Extremity Strength Assessment Within Functional Limits Lower Extremity Strength Assessment Within Functional Limits Comments Strength Comments limited trunk ROM and strength post-op with pain and precautions Coordination Assessment Gross Coordination Gross Coordination WNL Sensation Assessment Sensation Gross Sensation WNL Muscle Tone Muscle Tone WNL Yes M6 PT-IP Treatment Start: 01/02/23 15:48 Freq: NEEDED Status: Active Protocol: Document 01/04/23 15:11 TS (Rec: 01/04/23 15:23 [id number]) Physical Therapy Treatment Education Education Provided Precautions,Post-Op Packet, Safety Other Treatments Other Treatment Performed Her Spouse is present this visit and participated in education and training. M7 PT-IP Assessment and Plan Start: 01/02/23 15:48 Freq: NEEDED Status: Active Protocol: Document 01/04/23 15:11 TS (Rec: 01/04/23 15:23 TS [id number]) PT Summary Assessment and Plan Potential Rehabilitation Potential Good Summary Progress Towards Goals Progressing Toward Goals Assessment Summary Pt is making progress with her mobility this session. She ambulated ~25' in room, had no dizziness, nausea or thermal changes this session. She recalled 3/3 spinal precautions without cues from spouse this session. She demonstrates some carryover of sit to supine w/logroll technique but does require some initial cueing. PT continues to recommend pt return home with assist from spouse when medically stable. Spouse has been through caregiver training and pt is progressing well with her mobility. Goals Bed Mobility Goal Independent Transfer Goal Independent,Front Wheeled Walker Gait Goal Independent,Front Wheel Walker Gait Distance 150 feet Days to Meet Goals 2 Frequency of Treatment Frequency Of Treatment Twice a Day Treatment Plan Physical Therapy Treatment Plan Bed Mobility Training,Transfer Training,Gait Training, Therapeutic Exercise,Balance Retraining,Post Op Education, Discharge Planning,Hot or Cold Pack,Neuromuscular Re-ed Other Recommendations and Next Treatment progress gait, assess Focus carryover of bed mobility/ logroll and spinal precautions . Precautions Lumbar Precautions Log Roll,No Twisting,Limit Bending,Lifting Restriction of 10 lbs,Gait Belt above Incisional Area Recommendations To Nursing Amount of Assist Needed 1 Person Assist Discharge Recommendations PT Discharge Recommendations Home with Assistance Other Discharge Recommendations home with Spouse to assist Transportation Needs at Discharge Private Vehicle
--- NOTE | 2023-01-04 19:24 | PC.NURSE ---
Pain: Has had high level pain for th last 2 days. PA notified yesterday-will watch. And PA was notified again today of amount of oxycodone and IV dilaudid pt had taken. New order for oral dilaudid received. Pt received a dose around 0930 this am. Had already received IV dilaudid and oral oxy. When reassessed pt reported she felt better and she also wondered if the oxy was making her feel sick to her stomach. When she requested pain med again she did not want to take any further oxy requesting oral dilaudid. Dr. Worthy called and made aware and she can have it every 3 hours. She doesn't want to take something she doesn't feel is working and might be making her have nausea. Since then pt reports she is more comfortable. She has needed no IV dilaudid this shift and only 2 oral doses of dilaudid. Just took a dose now. She and spouse both thinks she will be fine at home on oral dilaudid and she should be able to leave in the am. Will cont to provide pain relief.
[2023-01-04 19:25] VITALS: BP 113/59; PULSE 66; RESP 16; TEMP 37.1; O2SAT 98
[2023-01-04] MEDS: ATORVASTATIN 20 MG TABLET 10 MG PO (20:09)
[2023-01-04] MEDS: SENNOSIDES 8.6 MG TABLET 17.2 MG PO (20:09)
[2023-01-04] MEDS: GABAPENTIN 300 MG CAPSULE PO (20:09)
[2023-01-04] MEDS: BACLOFEN 10 MG TABLET 20 MG PO (20:10)
[2023-01-05] MEDS: HYDROMORPHONE 2 MG TABLET PO (02:08)
[2023-01-05] MEDS: ONDANSETRON 4 MG/2 ML INJ IV (04:42)
[2023-01-05] MEDS: DOCUSATE 100 MG CAPSULE PO (08:11)
[2023-01-05] MEDS: FLUoxetine 20 MG CAPSULE 40 MG PO (08:11)
[2023-01-05 08:16] VITALS: BP 90/46
[2023-01-05 08:22] VITALS: BP 102/49
--- NOTE | 2023-01-05 08:57 | PM.DS.1 ---
History of Present Illness History of Present Illness Date Patient Seen: 01/05/23 Time Patient Seen: 08:57 Chief complaint: Lumbar TLIF Narrative: Operative Date/Time/Diagnoses Date of procedure: 01/02/23 Time of procedure: 10:15 Pre-op diagnosis: 1. L5-S1 spinal stenosis 2. Lumbar spondylosis with radiculopathy Post-op diagnosis: same Procedure & Clinicians Procedure: 1. L5-S1 Postero-lateral and posterior interbody fusion 2. L5-S1 interbody cage placement. 3. L5-S1 decompressive laminectomy with bilateral facetecomies 4. L5-S1 Posterior non-segmental instrumentation 5. [place] of bone marrow from iliac crest 6. Utilization of microsurgical technique and operating microscope Same procedure as scheduled: Yes Indications: Patient has been having chronic back pain and worsening lumbar radiculopathy. Patient failed multiple conservative management with worsening pain weakness and numbness in her lower extremity.? Patient has been having difficulty performing activity of daily living.? After discussing risks benefits of treatment options, patient elected proceed with surgery. Surgeon: Marychuy Worthy Felt Washing Machine Tender: Isa Heck Click Yes if Unassisted: No Anesthesia Type: General Operative Notes Closure Type: primary Specimen(s): none sent Prosthetic devices, grafts, tissues, transplants, or devices: Globus revolve screws, Rise cage Estimated Blood Loss (mL): 5 Blood products transfused: none Discharge Providers Provider Date of admission: 01/02/23 06:47 Discharge Date: 01/05/23 Primary care physician: Sulaiman Chandler DO Consults: 01/02/23 13:46 Consult to Occupational Therapy Evaluate & Treat Comment: Physician Instructions: Evaluate and treat Consult to Physical Therapy Evaluate & Treat Comment: Physician Instructions: Evaluate and Treat Discharge provider: Isa Heck PA-C Summary Hospital Course Discharge Diagnosis: L5-S1 spinal stenosis, Lumbar spondylosis with radiculopathy; s/p lumbar fusion Hospital Course: Ms Anjana Pinedo's hospital course was remarkable for poor pain control and slow progress w/ PT. On POD#2, she was started on oral dilaudid. While this helped with the pain, she told me on the morning of POD# 3 that she believed it was causing episodes of hypotension. She was otherwise feeling well and wanted to go home. We agreed that she would discharge w/ oxycodone only. She has hydroxyzine from a total knee replacement that she can also take for muscle spasm and nausea. She is eating and voiding without difficulty. Exam Vital Signs (past 8 hours): - 01/05/23 08:16 01/05/23 08:16 01/05/23 08:22 Blood Pressure 90/46 L 90/46 L 102/49 L Oxygen Delivery Method Room Air Oxygen Flow Rate 0 Narrative Exam Narrative: 5/5 strength in hip flexors, quadriceps, hamstrings, DF, PF, EHL bilaterally. Sensation to light touch intact in BLE. Calves soft, compressible, nontender. Dressing placed intraoperatively w/ scant bloody drainage on left. [facility] Medical History Allergic symptoms High cholesterol TIA (transient ischemic attack) Surgical History History of partial knee replacement Hx of surgical procedure Social History household members: spouse Smoking Status: Former smoker alcohol intake: current Discharge Assessment & Plan Assessment and Plan Assessment: L5-S1 spinal stenosis, Lumbar spondylosis with radiculopathy; s/p lumbar fusion Plan of Treatment: Discharge home, meds as above, f/u in office in 2 weeks as scheduled. Discharge Plan Discharge Plan Patient Disposition: Home Discharge orders & Medications Prescriptions: New oxycodone 5 mg tablet 5 mg PO Q4-6H PRN (Reason: pain (scale score 4-6)) Qty: 60 0RF acetaminophen 325 mg Tablet 650 mg PO Q6H PRN (Reason: Fever/Mild Pain (1-3)) Qty: 240 0RF docusate sodium 100 mg Capsule 100 mg PO BID PRN (Reason: constipation) Qty: 60 1RF Continued fluoxetine 40 mg Capsule 40 mg PO DAILY baclofen 20 mg Tablet 20 mg PO BEDTIME losartan 25 mg Tablet 25 mg PO DAILY gabapentin 300 mg Capsule 300 mg PO BEDTIME rosuvastatin 5 mg Tablet 5 mg PO DAILY Follow up/Referrals: Sulaiman Chandler DO [Primary Care Provider] - Marychuy Worthy MD [Physician] - As previously scheduled (Follow up with Darin Connolly PA-C, on 01/15/2023 @ 1:30 pm at [facility] office in [place].) Diet/Activity/Treatments Diet: Diet as Tolerated Activity: No deep bending or twisting at the waist. No lifting more than 10 pounds. Skin/Wound/Dressing Care Report to your healthcare provider any signs of infection, such as:: chills, fever, night sweats, unusual drainage and unusual redness Dressing: May shower. Keep dressing as dry as possible. If dressing becomes wet or dirty, may remove and replace with clean, dry gauze. No bathing or otherwise soaking incisions. Do not apply any creams, lotions, or ointments to incisions. Visit Report/Discharge Packet Instructions: DI for Prescription Opioid Use, DI for Transforaminal Lumbar Interbody Fusion Stand Alone Forms: Patient Portal/API, Stroke Signs & Symptoms, Surgery Discharge Discharge Data Primary Care Provider: Sulaiman Chandler VTE Deep Vein Thrombosis/Pulmonary Embolism Present on Admission: No
--- NOTE | 2023-01-05 10:10 | PT.IPTN ---
Current Diagnoses Spondylolisthesis, lumbosacral region (01/02/23) Spinal stenosis, lumbar region with neurogenic claudication (01/02/23) Arthrodesis status (01/02/23) Surgery Performed Operation Date: 01/02/23 09:15 Actual Procedures p L5-S1 TLIF - Marychuy Worthy MD Physical Therapy Treatment Note M2 PT-IP Current Condition Start: 01/02/23 15:48 Freq: NEEDED Status: Active Protocol: Document 01/03/23 14:42 DLM (Rec: 01/03/23 16:28 DLM [id number]) Physical Therapy Current Condition Current Condition Evaluation Date 01/03/23 Treatment Diagnosis L5-S1 TLIF, impaired mobility/ gait Onset Date 01/02/23 M3 PT-IP Subjective Start: 01/02/23 15:48 Freq: NEEDED Status: Active Protocol: Document 01/05/23 09:45 KS (Rec: 01/05/23 11:11 KS [id number]) Subjective Physical Therapy Visit Type Type Treatment Note Visit Start Time 09:45 Visit Stop Time 10:10 Total Visit Minutes 25 Notes Spouse present, able to assist pt Number of BRANCH OPERATIONS MANAGER Visits 3 Physical Therapy Visit Comments Patient Comments Pt feels ready to go home w/ spouse. Patient Goals Discharge home with Spouse to assist Therapy Pain Assessment Pain When Pain Assessed During Mobility Pain Present Pain Present Pain Reported Location Lower Back Intensity 7 Scale Used Numeric (0 - 10) Pain Behaviors Guarding Pain Management Techniques Re-positioning,Timing of Activity with Medications M4 PT-IP Mobility and Gait Start: 01/02/23 15:48 Freq: NEEDED Status: Active Protocol: Document 01/05/23 09:45 KS (Rec: 01/05/23 11:11 KS [id number]) PT-Bed Mobility Assessment Rolling Type of Rolling Log Rolling,Roll to Right Supine to Sit Supine to Sit Minimal Assistance,1 Person Assistance Sit to Supine Sit to Supine Minimal Assistance,1 Person Assistance Scooting Scooting to Edge of Bed Standby Assistance PT-Transfer Assessment Sit to and From Stand Sit to and from Stand Standby Assistance,1 Person Assistance,Use of Upper Extremities Equipment Transfer Assistive Device Gait Belt,Front Wheeled Walker Transfers Transfer Destination Bed Transfer Technique ambulated Transfer Ability Level of Assist Minimal Assistance,1 Person Assistance,Use of Upper Extremities Comments Mobility Comments Pt in bed upon arrival, spouse in room. Pt able to recll 3/3 precautions. Spouse provided min A for logroll and sidelying<>sit. Pt scooted EOB SBA. Sit<>stand w/ FWW SBA. Pt ambulated ~[address] w/ FWW SBA to CGA and returned to bed w/ Min A. Pt and spouse feel capable of returning home safely. Left in bed w/ all needs in reach. Gait Assessment Gait Gait Assistance Required: Standby Assistance,Contact Guard Assist,1 Person Assist Distance (Feet) 80 Able to Maintain Weight Bearing Status Yes During Gait Assistive Devices Assistive Device Gait Belt,Front Wheeled Walker Gait Deviations General Gait Pattern Decreased Stride Length,Narrow Based Gait,Step-to Gait Factors Limiting Gait Function Factors Limiting Gait Function Decreased Activity Tolerance, Decreased Strength,Limited Range of Motion,Pain,Poor Balance Comments Gait Comments Pt has a slow step to gait with NBOS at times. See mobility comments. Stair Climbing Assessment Comments Stair Climbing Comments ramp at home PT-Balance Assessment Sitting Balance and Reactions Static Sitting Balance Ability Good Dynamic Sitting Balance Ability Good Standing Balance and Reactions Static Standing Balance Ability Good Dynamic Standing Balance Ability Good Device Used FWW M5 PT-IP Objective Assessments Start: 01/02/23 15:48 Freq: NEEDED Status: Active Protocol: Document 01/03/23 14:42 DLM (Rec: 01/03/23 16:28 DLM [id number]) Orientation Orientation/Cognition Level of Alertness Alert Orientation Name,Age,Birthday,Month,Date, Year,Day of Week,Place, Situation Language Function Ability Israeli as Second Language Safety Awareness Understands Safety Issues Memory Description No Deficits Noted Gross Range of Motion Upper Extremity ROM Assessment Within Functional Limits Lower Extremity ROM Assessment Within Functional Limits Strength Upper Extremity Strength Assessment Within Functional Limits Lower Extremity Strength Assessment Within Functional Limits Comments Strength Comments limited trunk ROM and strength post-op with pain and precautions Coordination Assessment Gross Coordination Gross Coordination WNL Sensation Assessment Sensation Gross Sensation WNL Muscle Tone Muscle Tone WNL Yes M6 PT-IP Treatment Start: 01/02/23 15:48 Freq: NEEDED Status: Active Protocol: Document 01/05/23 09:45 KS (Rec: 01/05/23 11:11 KS [id number]) Physical Therapy Treatment Education Education Provided Precautions,Post-Op Packet, Safety Other Treatments Other Treatment Performed Her Spouse is present this visit and participated in education and training. Was able to assist and provide appropriate cues. M7 PT-IP Assessment and Plan Start: 01/02/23 15:48 Freq: NEEDED Status: Active Protocol: Document 01/05/23 09:45 KS (Rec: 01/05/23 11:11 KS [id number]) PT Summary Assessment and Plan Potential Rehabilitation Potential Good Summary Progress Towards Goals Progressing Toward Goals Assessment Summary Pt requires SBA to Min A for bed mobility, recalls 3/3 precautions, and increased ambulation distance to 80 ft w / FWW today. Her spouse was able to provide all necessary assistance and cues. Still reports 7/10 pain but feels capable of going home w/ spouse supporting. She has a ramp to enter, FWW, and w/c. She will benefit from OPPT when appropriate to improve strength and stability and decrease pain. Goals Bed Mobility Goal Independent Transfer Goal Independent,Front Wheeled Walker Gait Goal Independent,Front Wheel Walker Gait Distance 150 feet Days to Meet Goals 2 Frequency of Treatment Frequency Of Treatment Twice a Day Treatment Plan Physical Therapy Treatment Plan Bed Mobility Training,Transfer Training,Gait Training, Therapeutic Exercise,Balance Retraining,Post Op Education, Discharge Planning,Hot or Cold Pack,Neuromuscular Re-ed Other Recommendations and Next Treatment progress gait, assess Focus carryover of bed mobility/ logroll and spinal precautions . Precautions Lumbar Precautions Log Roll,No Twisting,Limit Bending,Lifting Restriction of 10 lbs,Gait Belt above Incisional Area Recommendations To Nursing Amount of Assist Needed 1 Person Assist Discharge Recommendations PT Discharge Recommendations Home with Assistance Other Discharge Recommendations home with Spouse to assist Transportation Needs at Discharge Private Vehicle
[2023-01-05] MEDS: OXYCODONE IR 10 MG TABLET PO ×2 (10:29→13:13)
[2023-01-05 11:34] VITALS: BP 102/52; PULSE 68; RESP 18; TEMP 37.6; O2SAT 93
--- NOTE | 2023-01-05 14:09 | PC.NURSE ---
Discharge Note Patient A&O, VSS, RA, no complaints of pain/discomfort. Patient agreeable to discharge plan. Discharge packet reviewed with patient, all questions/concerns addressed. PIV discontinued. Patient able to dress self and pack all belongings. Patient taken down via wheelchair to POV.
== END 2023-01-05 13:30 | disposition home or self-care (01) | DRG 455 ==
PROVIDERS: Admitting Provider Orthopaedic Surgery Orthopaedic Surgery of the Spine; PCP Family Medicine Adult Medicine; Referring Provider Family Medicine Adult Medicine; Visit Provider Orthopaedic Surgery Orthopaedic Surgery of the Spine
PROC: 0SG30AJ Fusion of Lumbosacral Joint with Interbody Fusion Device, Posterior Approach, Anterior Column, Open Approach (ICD-10-PCS; principal; 2023-01-02 09:15)
DX: M48.062 Spinal stenosis, lumbar region with neurogenic claudication (principal); M43.17 Spondylolisthesis, lumbosacral region; M47.816 Spondylosis without myelopathy or radiculopathy, lumbar region; M47.26 Other spondylosis with radiculopathy, lumbar region; G89.18 Other acute postprocedural pain; E78.5 Hyperlipidemia, unspecified; I10 Essential (primary) hypertension; Z87.891 Personal history of nicotine dependence
CPT/HCPCS: 72100; 76000; 97116; 97162; 97165; 97530; C1776; C1713; C9290; J0171; J0330; J0690; J1100; J1170; J2250; J2405; J2704; J3010